=== PATIENT | female | born 1955 | race Two or more races ===

== ENCOUNTER 2023-09-09 12:35 | Inpatient (IN) | payer OTHER ==
[2023-09-09 13:34] VITALS: BMI 27.4
[2023-09-09] MEDS ORDERED: ONDANSETRON *ODT* 4 MG TABLET SL PRN (13:50)
[2023-09-09] MEDS ORDERED: MAGNESIUM HYDROX 2400MG/30ML ORAL SUSPENSION 30 ML CUP PO PRN (13:50)
[2023-09-09] MEDS ORDERED: ACETAMINOPHEN 325 MG TABLET (FP) PO PRN (13:50)
[2023-09-09] MEDS ORDERED: BENZOCAINE/MENTHOL (CHLORASEPTIC ) LOZENGE MM PRN (13:50)
[2023-09-09] MEDS ORDERED: hydrOXYzine PAMOATE 25 MG CAPSULE (FP) PO PRN (13:50)
[2023-09-09] MEDS ORDERED: BISMUTH SUBSALICYLATE 262 MG/15 ML BTL PO PRN (13:50)
[2023-09-09] MEDS ORDERED: BENZONATATE 200 MG CAPSULE PO PRN (13:50)
[2023-09-09] MEDS ORDERED: POLYETHYLENE GLYCOL (HEALTHYLAX) 3350 17 GM PACKET PO PRN (13:50)
[2023-09-09] MEDS ORDERED: IBUPROFEN 400 MG TABLET (FP) PO PRN (13:50)
[2023-09-09] MEDS ORDERED: MAG HYDROX/AL HYDROX/SIMETH 30 ML UNIT-DOSE CUP PO PRN (13:50)
[2023-09-09] MEDS ORDERED: IBUPROFEN 600 MG TABLET (FP) PO PRN (13:50)
[2023-09-09] MEDS ORDERED: METHOCARBAMOL 500 MG TABLET PO PRN (13:50)
[2023-09-09] MEDS ORDERED: DICYCLOMINE HCL 10 MG CAPSULE PO PRN (13:50)
[2023-09-09] MEDS ORDERED: NALOXONE HCL (KLOXXADO) 8 MG SPRAY NS PRN (13:50)
[2023-09-09] MEDS ORDERED: NALOXONE HCL 0.4 MG/ML VIAL IM PRN (13:50)
[2023-09-09] MEDS ORDERED: guaiFENesin 600 MG TABLET.ER (FP) PO PRN (13:50)
[2023-09-09] MEDS ORDERED: LOPERAMIDE HCL 2 MG CAPSULE PO PRN (13:50)
[2023-09-09] MEDS: MELATONIN 5 MG TABLETS PO SCH (22:33)
[2023-09-09] MEDS: THIAMINE HCL 100 MG TABLET (FP) PO SCH (22:33)
[2023-09-10] MEDS: methaDONE 40 MG, methaDONE 30 MG PO SCH (05:45)
[2023-09-10] MEDS ORDERED: methaDONE HCL 10 MG TABLET PO SCH (06:00)
[2023-09-10] MEDS: PRENATAL VITAMINS W/ FOLIC ACID TABLET (FP) PO SCH (10:51)
[2023-09-10 11:38] LABS: HEMATOCRIT 27.5 % (32.4-45.2); HEMOGLOBIN 7.7 GM/dL (10.7-15.3); MEAN CELL VOLUME 64.5 fl (80-96); RBC 4.26 M/mm3 (3.60-5.2); RDW 20.1 % (11.6-15.6); WHITE BLOOD COUNT 3.1 K/mm3 (4.0-10.0)
[2023-09-10 11:41] LABS: MCH 18.1 pg (25.7-33.7)
[2023-09-10 12:49] LABS: CHLORIDE 97 mmol/L (98-107); POTASSIUM 4.3 mmol/L (3.5-5.1); SODIUM 131 mmol/L (136-145)
[2023-09-10 12:51] LABS: CALCIUM 8.5 mg/dL (8.5-10.1)
[2023-09-10 12:52] LABS: ALBUMIN 2.8 g/dl (3.4-5.0); ANION GAP 3 mmol/L (4-13); CO2 31 mmol/L (21-32)
[2023-09-10 12:55] LABS: CREATININE 0.5 mg/dL (0.55-1.3); GLUCOSE,RANDOM 92 mg/dL (74-106); SGPT/ALT 23 U/L (13-61)
[2023-09-10 12:56] LABS: BILIRUBIN,TOTAL 0.7 mg/dL (0.2-1)
[2023-09-10 12:57] LABS: TOT PROT 7.5 g/dl (6.4-8.2)
[2023-09-10 12:58] LABS: ALK PHOS 102 U/L (45-117); SGOT/AST 43 U/L (15-37)
[2023-09-10] MEDS: diazePAM 5 MG TABLET PO SCH (17:13)
[2023-09-11] MEDS: diazePAM 5 MG TABLET PO SCH (05:50)
[2023-09-11] MEDS: LACTULOSE 20 GM/30 ML UDC (FOR ORAL USE ONLY) PO SCH (13:20)
[2023-09-11] MEDS: diazePAM 5 MG TABLET PO PRN (17:55)
[2023-09-12] MEDS: diazePAM 5 MG TABLET PO SCH (06:28)
[2023-09-12 14:47] LABS: HEMATOCRIT 25.6 % (32.4-45.2); HEMOGLOBIN 7.4 GM/dL (10.7-15.3); MCH 18.7 pg (25.7-33.7); MCHC 28.8 g/dl (32.0-36.0); MEAN CELL VOLUME 64.7 fl (80-96); MEAN PLT VOLUME 8.3 fl (7.5-11.1); PLATELET COUNT 61 10^3/uL (134-434); RBC 3.95 M/mm3 (3.60-5.2); RDW 20.4 % (11.6-15.6); WHITE BLOOD COUNT 2.9 K/mm3 (4.0-10.0)
[2023-09-12 14:59] LABS: IRON SERUM 136 ug/dL (50-175)
[2023-09-12 15:00] LABS: TOTAL IRON BINDING CAPACITY 394 ug/dL (250-450)
[2023-09-12 18:12] VITALS: RESP 16
[2023-09-12 19:45] VITALS: BP 94/51; PULSE 69; TEMP 97.9
[2023-09-13] MEDS: diazePAM 5 MG TABLET PO ONE (05:09)
== END 2023-09-13 07:15 | disposition short-term general hospital (02) | DRG 897 ==
LOC: YASAS 12:35 → Y6N 15:06
PROVIDERS: ADMIT Surgery; ATTEND Allergy & Immunology
PROC: HZ2ZZZZ Detoxification Services for Substance Abuse Treatment (ICD-10-PCS; principal; 2023-09-09)
DX: F10.230 Alcohol dependence with withdrawal, uncomplicated (principal); F11.20 Opioid dependence, uncomplicated; E72.20 Disorder of urea cycle metabolism, unspecified; F17.210 Nicotine dependence, cigarettes, uncomplicated; D64.9 Anemia, unspecified
CPT/HCPCS: 36415; 80053; 80307; 82140; 83540; 83550; 85027; 86022; 86780; 93005; 93010

== ENCOUNTER 2023-09-12 20:17 | Inpatient (IN) | payer OTHER ==
[2023-09-12 22:06] LABS: INR 1.43 (0.83-1.09); PROTHROMBIN TIME (PATIENT) 16.5 SEC (9.7-13.0)
[2023-09-12] MEDS ORDERED: THIAMINE HCL 200 MG/2 ML VIAL ONE (22:07)
[2023-09-12 22:08] LABS: ACTIVATED PTT 37.3 SECONDS (25.2-36.5)
[2023-09-12] MEDS: SODIUM CHLORIDE 0.9% 500 ML INFUS.BAG IV ONE (22:15)
[2023-09-12] MEDS: THIAMINE HCL 200 MG/2 ML VIAL IVPB ONE (22:15)
[2023-09-12 22:20] LABS: POTASSIUM 4.3 mmol/L (3.5-5.1)
[2023-09-12 22:21] LABS: ALBUMIN 2.5 g/dl (3.4-5.0); CALCIUM 8.7 mg/dL (8.5-10.1)
[2023-09-12 22:23] LABS: BLOOD UREA NITROGEN 6.5 mg/dL (7-18)
[2023-09-12 22:26] LABS: CREATININE 0.6 mg/dL (0.55-1.3)
[2023-09-12 22:27] LABS: BILIRUBIN,TOTAL 0.5 mg/dL (0.2-1); TOT PROT 7.2 g/dl (6.4-8.2)
[2023-09-12 22:51] LABS: BASO % 0.3 % (0-2.0); EOS % 1.5 % (0-4.5); HEMOGLOBIN 7.6 GM/dL (10.7-15.3); LYMPH % 16.6 % (8-40); MCHC 28.5 g/dl (32.0-36.0); MEAN PLT VOLUME 8.1 fl (7.5-11.1); NEUT % 69.6 % (42.8-82.8); RBC 4.16 M/mm3 (3.60-5.2); RDW 21.1 % (11.6-15.6)
[2023-09-12 23:01] LABS: HEMATOCRIT 26.5 % (32.4-45.2); MCH 18.4 pg (25.7-33.7); MEAN CELL VOLUME 64.3 fl (80-96); PLATELET COUNT 64 10^3/uL (134-434)
[2023-09-12 23:28] LABS: ANISOCYTOSIS 3+; MACROCYTOSIS 0; OVALOCYTE 1+; TARGET CELLS 1+
[2023-09-13 05:14] VITALS: BMI 27.6
[2023-09-13] MEDS: FOLIC ACID 1 MG TABLET (FP) PO SCH (09:27)
[2023-09-13] MEDS: THIAMINE 100 MG TABLET PO SCH (09:28)
[2023-09-13 09:51] LABS: BASO % 0.3 % (0-2.0); EOS % 1.6 % (0-4.5); HEMATOCRIT 28.1 % (32.4-45.2); HEMOGLOBIN 7.9 GM/dL (10.7-15.3); LYMPH % 20.4 % (8-40); MCHC 28.1 g/dl (32.0-36.0); MEAN CELL VOLUME 65.3 fl (80-96); MONO % 9.3 % (3.8-10.2); NEUT % 68.4 % (42.8-82.8); PLATELET COUNT 68 10^3/uL (134-434); RDW 21.3 % (11.6-15.6)
[2023-09-13 09:53] LABS: MCH 18.3 pg (25.7-33.7)
[2023-09-13] MEDS ORDERED: FOLIC ACID INJECTION - 1 MG, THIAMINE HCL 100 MG, MULTIVIT INJECTION ADULT 10 ML in SOD... IVPB ONE (10:00)
[2023-09-13 10:11] LABS: BLOOD UREA NITROGEN 6.6 mg/dL (7-18)
[2023-09-13 10:12] LABS: BILIRUBIN,TOTAL 0.6 mg/dL (0.2-1)
[2023-09-13 10:14] LABS: ALBUMIN 2.4 g/dl (3.4-5.0); CALCIUM 8.3 mg/dL (8.5-10.1); CREATININE 0.5 mg/dL (0.55-1.3); MAGNESIUM 1.4 mg/dL (1.8-2.4); PHOSPHOROUS 4.1 mg/dL (2.5-4.9)
[2023-09-15 08:47] LABS: BASO % 0.3 % (0-2.0); EOS % 1.3 % (0-4.5); HEMATOCRIT 27.8 % (32.4-45.2); HEMOGLOBIN 8.3 GM/dL (10.7-15.3); LYMPH % 16.7 % (8-40); MEAN CELL VOLUME 63.6 fl (80-96); MEAN PLT VOLUME 8.2 fl (7.5-11.1); MONO % 11.5 % (3.8-10.2); NEUT % 70.2 % (42.8-82.8); PLATELET COUNT 76 10^3/uL (134-434); RBC 4.37 M/mm3 (3.60-5.2); RDW 21.4 % (11.6-15.6); WHITE BLOOD COUNT 3.6 K/mm3 (4.0-10.0)
[2023-09-15 08:55] LABS: ACTIVATED PTT 38.5 SECONDS (25.2-36.5)
[2023-09-15 08:56] LABS: MCH 19.1 pg (25.7-33.7)
[2023-09-15 08:57] LABS: INR 1.44 (0.83-1.09); PROTHROMBIN TIME (PATIENT) 16.6 SEC (9.7-13.0)
[2023-09-15 09:05] LABS: POTASSIUM 3.8 mmol/L (3.5-5.1)
[2023-09-15 09:13] LABS: CALCIUM 8.4 mg/dL (8.5-10.1)
[2023-09-15 09:14] LABS: ALBUMIN 2.5 g/dl (3.4-5.0); BLOOD UREA NITROGEN 7.6 mg/dL (7-18)
[2023-09-15 09:15] LABS: MAGNESIUM 1.4 mg/dL (1.8-2.4)
[2023-09-15 09:17] LABS: CREATININE 0.4 mg/dL (0.55-1.3); PHOSPHOROUS 4.9 mg/dL (2.5-4.9)
[2023-09-15 09:19] LABS: BILIRUBIN,TOTAL 1.3 mg/dL (0.2-1); TOT PROT 7.3 g/dl (6.4-8.2)
[2023-09-15] MEDS: MAGNESIUM OXIDE 400 MG TABLET (FP) PO ONE (14:49)
[2023-09-15] MEDS: methaDONE HCL 10 MG TABLET (FOR DETOX USE ONLY) PO SCH (15:57)
[2023-09-15] MEDS: QUEtiapine FUMARATE 50 MG TABLET PO SCH (21:23)
[2023-09-16 08:49] VITALS: BP 103/45; PULSE 62; RESP 16; TEMP 98.1
[2023-09-16] MEDS: ESCITALOPRAM OXALATE 20 MG TABLET PO SCH (10:06)
== END 2023-09-16 11:32 | disposition other institution (70) | DRG 812 ==
LOC: JER 20:17 → JERBED 09-13 01:45 → J5S 09-13 04:51
PROVIDERS: ADMIT Student in an Organized Health Care Education/Training Program
DX: D50.9 Iron deficiency anemia, unspecified (principal); F11.20 Opioid dependence, uncomplicated; F10.20 Alcohol dependence, uncomplicated; I10 Essential (primary) hypertension; E78.5 Hyperlipidemia, unspecified; J45.909 Unspecified asthma, uncomplicated; R68.3 Clubbing of fingers; F39 Unspecified mood [affective] disorder
CPT/HCPCS: 36415; 70450-TC; 71045-TC-FY; 80053; 82272; 82728; 83021; 83540; 83550; 83735; 84100; 84484; 85025; 85610; 85660; 85730; 86850; 86870; 86880; 86900; 86901; 86902; 93005; 93010; 97116-GP; 97161-GP; 99285-25

== ENCOUNTER 2023-09-16 12:08 | Inpatient (IN) | payer OTHER ==
[2023-09-16 13:22] VITALS: RESP 16; BMI 25.6
[2023-09-16] MEDS ORDERED: MAGNESIUM HYDROX 2400MG/30ML ORAL SUSPENSION 30 ML CUP PO PRN (14:30)
[2023-09-16] MEDS ORDERED: BENZONATATE 200 MG CAPSULE PO PRN (14:30)
[2023-09-16] MEDS ORDERED: ACETAMINOPHEN 325 MG TABLET (FP) PO PRN (14:30)
[2023-09-16] MEDS ORDERED: MAG HYDROX/AL HYDROX/SIMETH 30 ML UNIT-DOSE CUP PO PRN (14:30)
[2023-09-16] MEDS ORDERED: NALOXONE HCL 0.4 MG/ML VIAL IM PRN (14:30)
[2023-09-16] MEDS ORDERED: hydrOXYzine PAMOATE 25 MG CAPSULE (FP) PO PRN (14:30)
[2023-09-16] MEDS ORDERED: POLYETHYLENE GLYCOL (HEALTHYLAX) 3350 17 GM PACKET PO PRN (14:30)
[2023-09-16] MEDS ORDERED: LOPERAMIDE HCL 2 MG CAPSULE PO PRN (14:30)
[2023-09-16] MEDS ORDERED: NALOXONE HCL (KLOXXADO) 8 MG SPRAY NS PRN (14:30)
[2023-09-16] MEDS ORDERED: guaiFENesin 600 MG TABLET.ER (FP) PO PRN (14:30)
[2023-09-16] MEDS ORDERED: BENZOCAINE/MENTHOL (CHLORASEPTIC ) LOZENGE MM PRN (14:30)
[2023-09-16] MEDS: NICOTINE 7 MG/24 HOURS TOPICAL PATCH TD SCH (15:45)
[2023-09-16] MEDS: PRENATAL VITAMINS W/ FOLIC ACID TABLET (FP) PO SCH (15:45)
[2023-09-16] MEDS ORDERED: PRENATAL VITAMINS W/ FOLIC ACID TABLET (FP) PO ONE (15:46)
[2023-09-16] MEDS ORDERED: NICOTINE 7 MG/24 HOURS TOPICAL PATCH TD ONE (15:49)
[2023-09-16] MEDS: IBUPROFEN 400 MG TABLET (FP) PO PRN (17:31)
[2023-09-16] MEDS: MELATONIN 5 MG TABLETS PO SCH (22:33)
[2023-09-16] MEDS: FERROUS SO4 325 MG TABLET (FP) PO SCH (22:33)
[2023-09-16] MEDS: THIAMINE 100 MG TABLET PO SCH (22:33)
[2023-09-16] MEDS: QUEtiapine FUMARATE 50 MG TABLET PO SCH (22:33)
[2023-09-17] MEDS: IBUPROFEN 600 MG TABLET (FP) PO PRN (06:57)
[2023-09-17 07:56] VITALS: BP 123/54; PULSE 57; TEMP 98
[2023-09-17] MEDS: methaDONE 40 MG, methaDONE 30 MG PO ONE (08:58)
[2023-09-17] MEDS: SPIRONOLACTONE 25 MG TABLET PO SCH (09:14)
[2023-09-17] MEDS: amLODIPine BESYLATE 5 MG TABLET (FP) PO SCH (09:15)
[2023-09-17] MEDS: LISINOPRIL 20 MG TABLET PO SCH (09:15)
[2023-09-17] MEDS ORDERED: methaDONE HCL 40 MG DISPERSABLE TABLET PO SCH (10:00)
[2023-09-18] MEDS ORDERED: methaDONE 40 MG, methaDONE 30 MG PO SCH (06:00)
== END 2023-09-17 09:00 | disposition short-term general hospital (02) | DRG 895 ==
LOC: YASAS 12:08 → Y3NR 14:56
PROVIDERS: ADMIT Allergy & Immunology; ATTEND Psychiatry & Neurology Pain Medicine
PROC: HZ42ZZZ Group Counseling for Substance Abuse Treatment, Cognitive-Behavioral (ICD-10-PCS; principal; 2023-09-16)
DX: F10.20 Alcohol dependence, uncomplicated (principal); F11.20 Opioid dependence, uncomplicated; F17.210 Nicotine dependence, cigarettes, uncomplicated; F32.9 Major depressive disorder, single episode, unspecified; D50.9 Iron deficiency anemia, unspecified; I10 Essential (primary) hypertension; R55 Syncope and collapse; S79.919A Unspecified injury of unspecified hip, initial encounter; W01.0XXA Fall on same level from slipping, tripping and stumbling without subsequent striking against object, initial encounter; Y92.230 Patient room in hospital as the place of occurrence of the external cause
CPT/HCPCS: 36415; 82140; 86803; 87811; 93005; 93010

== ENCOUNTER 2023-09-17 09:10 | Inpatient (IN) | payer OTHER ==
[2023-09-17 10:49] LABS: BASO % 0.4 % (0-2.0); EOS % 1.6 % (0-4.5); HEMATOCRIT 29.7 % (32.4-45.2); HEMOGLOBIN 8.5 GM/dL (10.7-15.3); MCHC 28.6 g/dl (32.0-36.0); MEAN CELL VOLUME 65.7 fl (80-96); MEAN PLT VOLUME 7.7 fl (7.5-11.1); MONO % 9.2 % (3.8-10.2); NEUT % 73.8 % (42.8-82.8); PLATELET COUNT 85 10^3/uL (134-434); RBC 4.52 M/mm3 (3.60-5.2); RDW 22.4 % (11.6-15.6)
[2023-09-17 10:54] LABS: MCH 18.8 pg (25.7-33.7)
[2023-09-17 11:05] LABS: POTASSIUM 3.7 mmol/L (3.5-5.1)
[2023-09-17 11:08] LABS: CALCIUM 9.2 mg/dL (8.5-10.1)
[2023-09-17 11:09] LABS: ALBUMIN 2.7 g/dl (3.4-5.0); BLOOD UREA NITROGEN 20.1 mg/dL (7-18)
[2023-09-17 11:12] LABS: CREATININE 0.8 mg/dL (0.55-1.3)
[2023-09-17 11:13] LABS: TOT PROT 8.1 g/dl (6.4-8.2)
[2023-09-17 16:50] LABS: RETICULOCYTES 1.23 % (0.5-1.5)
[2023-09-17] MEDS ORDERED: KETOROLAC TROMETHAMINE 30 MG/1 ML VIAL ONE (17:56)
[2023-09-17] MEDS: KETOROLAC TROMETHAMINE 30 MG/1 ML VIAL IM ONE (18:02)
[2023-09-17] MEDS: IRON SUCROSE INJECTION 200 MG in SODIUM CHLORIDE 100 ML IVPB ONE (21:58)
[2023-09-18 03:34] VITALS: BMI 26.8
[2023-09-18 07:15] LABS: BASO % 0.3 % (0-2.0); EOS % 2.3 % (0-4.5); HEMATOCRIT 27.1 % (32.4-45.2); HEMOGLOBIN 7.8 GM/dL (10.7-15.3); LYMPH % 14.1 % (8-40); MCHC 28.9 g/dl (32.0-36.0); MEAN CELL VOLUME 65.8 fl (80-96); MEAN PLT VOLUME 8.2 fl (7.5-11.1); MONO % 11.4 % (3.8-10.2); NEUT % 71.9 % (42.8-82.8); PLATELET COUNT 82 10^3/uL (134-434); RBC 4.12 M/mm3 (3.60-5.2); WHITE BLOOD COUNT 3.1 K/mm3 (4.0-10.0)
[2023-09-18 07:24] LABS: POTASSIUM 3.8 mmol/L (3.5-5.1)
[2023-09-18 07:30] LABS: BLOOD UREA NITROGEN 22.9 mg/dL (7-18); CALCIUM 8.3 mg/dL (8.5-10.1); MAGNESIUM 1.9 mg/dL (1.8-2.4)
[2023-09-18 07:31] LABS: ALBUMIN 2.4 g/dl (3.4-5.0)
[2023-09-18 07:34] LABS: CREATININE 0.6 mg/dL (0.55-1.3); PHOSPHOROUS 4.8 mg/dL (2.5-4.9)
[2023-09-18 07:35] LABS: BILIRUBIN,TOTAL 0.6 mg/dL (0.2-1); TOT PROT 7.2 g/dl (6.4-8.2)
[2023-09-18] MEDS: THIAMINE HCL 200 MG/2 ML VIAL IVPB SCH (09:50)
[2023-09-18] MEDS ORDERED: methaDONE HCL 10 MG TABLET (FOR DETOX USE ONLY) PO SCH (10:00)
[2023-09-18] MEDS: SODIUM CHLORIDE 1,000 ML IV SCH (10:41)
[2023-09-18] MEDS: methaDONE 40 MG, methaDONE 30 MG PO SCH (10:43)
[2023-09-19 06:54] LABS: BASO % 0.2 % (0-2.0); HEMATOCRIT 26.2 % (32.4-45.2); HEMOGLOBIN 7.7 GM/dL (10.7-15.3); MCHC 29.4 g/dl (32.0-36.0); MEAN CELL VOLUME 65.8 fl (80-96); MONO % 11.7 % (3.8-10.2); NEUT % 65.1 % (42.8-82.8); PLATELET COUNT 84 10^3/uL (134-434); RBC 3.99 M/mm3 (3.60-5.2); RDW 23.2 % (11.6-15.6); WHITE BLOOD COUNT 2.9 K/mm3 (4.0-10.0)
[2023-09-19 07:01] LABS: POTASSIUM 4.2 mmol/L (3.5-5.1)
[2023-09-19 07:05] LABS: BLOOD UREA NITROGEN 11.6 mg/dL (7-18); CALCIUM 8.3 mg/dL (8.5-10.1)
[2023-09-19 07:06] LABS: ALBUMIN 2.5 g/dl (3.4-5.0)
[2023-09-19 07:08] LABS: CREATININE 0.5 mg/dL (0.55-1.3)
[2023-09-19 07:11] LABS: TOT PROT 7.3 g/dl (6.4-8.2)
[2023-09-19 07:15] LABS: BILIRUBIN,TOTAL 0.8 mg/dL (0.2-1)
[2023-09-19 07:15] LABS: MCH 19.3 pg (25.7-33.7)
[2023-09-19] MEDS: ESCITALOPRAM OXALATE 20 MG TABLET PO SCH (09:21)
[2023-09-19] MEDS: THIAMINE 100 MG TABLET PO SCH (09:22)
[2023-09-19 13:49] LABS: COCAINE, UR NEGATIVE (NEGATIVE); URINE AMPHETAMINES NEGATIVE (NEGATIVE)
[2023-09-19 13:50] LABS: OPIATES, URI NEGATIVE (NEGATIVE); URINE BARBITURATES NEGATIVE (NEGATIVE)
[2023-09-19 13:51] LABS: PHENCYCLIDINE,URINE NEGATIVE (NEGATIVE)
[2023-09-19 13:53] LABS: METHADONE, UR POSITIVE (NEGATIVE); URINE BENZODIAZEPINES POSITIVE (NEGATIVE)
[2023-09-19] MEDS: THIAMINE HCL 200 MG/2 ML VIAL IVPB SCH (17:28)
[2023-09-20 08:26] LABS: BASO % 0.2 % (0-2.0); EOS % 1.9 % (0-4.5); HEMATOCRIT 26.9 % (32.4-45.2); HEMOGLOBIN 8.1 GM/dL (10.7-15.3); LYMPH % 18.9 % (8-40); MCHC 29.9 g/dl (32.0-36.0); MEAN CELL VOLUME 65.9 fl (80-96); MEAN PLT VOLUME 8.2 fl (7.5-11.1); MONO % 10.6 % (3.8-10.2); NEUT % 68.4 % (42.8-82.8); PLATELET COUNT 91 10^3/uL (134-434); RBC 4.08 M/mm3 (3.60-5.2); RDW 23.2 % (11.6-15.6); WHITE BLOOD COUNT 4.2 K/mm3 (4.0-10.0)
[2023-09-20 08:42] LABS: POTASSIUM 4.3 mmol/L (3.5-5.1)
[2023-09-20 08:47] LABS: MCH 19.7 pg (25.7-33.7)
[2023-09-20 09:01] LABS: CALCIUM 9.2 mg/dL (8.5-10.1)
[2023-09-20 09:02] LABS: BLOOD UREA NITROGEN 9.1 mg/dL (7-18)
[2023-09-20 09:05] LABS: ALBUMIN 2.6 g/dl (3.4-5.0); CREATININE 0.5 mg/dL (0.55-1.3)
[2023-09-20] MEDS: LOSARTAN POTASSIUM 50 MG TABLET PO SCH (09:05)
[2023-09-20 09:07] LABS: BILIRUBIN,TOTAL 0.8 mg/dL (0.2-1); TOT PROT 7.8 g/dl (6.4-8.2)
[2023-09-21 07:18] LABS: POTASSIUM 4.2 mmol/L (3.5-5.1)
[2023-09-21 07:19] LABS: HEMATOCRIT 29.3 % (32.4-45.2); HEMOGLOBIN 8.5 GM/dL (10.7-15.3); MCHC 28.9 g/dl (32.0-36.0); MEAN CELL VOLUME 67.5 fl (80-96); MEAN PLT VOLUME 8.4 fl (7.5-11.1); PLATELET COUNT 103 10^3/uL (134-434); RBC 4.34 M/mm3 (3.60-5.2); RDW 23.6 % (11.6-15.6); WHITE BLOOD COUNT 4.2 K/mm3 (4.0-10.0)
[2023-09-21 07:22] LABS: MCH 19.5 pg (25.7-33.7)
[2023-09-21 07:27] LABS: BLOOD UREA NITROGEN 10.1 mg/dL (7-18); CALCIUM 8.9 mg/dL (8.5-10.1); MAGNESIUM 1.7 mg/dL (1.8-2.4)
[2023-09-21 07:31] LABS: CREATININE 0.5 mg/dL (0.55-1.3)
[2023-09-21] MEDS: MAGNESIUM OXIDE 400 MG TABLET (FP) PO ONE (13:56)
[2023-09-22 07:45] LABS: HEMATOCRIT 26.9 % (32.4-45.2); MCHC 29.8 g/dl (32.0-36.0); MEAN CELL VOLUME 66.9 fl (80-96); MEAN PLT VOLUME 8.3 fl (7.5-11.1); PLATELET COUNT 93 10^3/uL (134-434); RBC 4.02 M/mm3 (3.60-5.2); RDW 24.7 % (11.6-15.6); WHITE BLOOD COUNT 3.8 K/mm3 (4.0-10.0)
[2023-09-22 07:47] LABS: MCH 19.9 pg (25.7-33.7)
[2023-09-22 07:50] LABS: POTASSIUM 4.1 mmol/L (3.5-5.1)
[2023-09-22 07:55] LABS: BLOOD UREA NITROGEN 8.5 mg/dL (7-18); CALCIUM 8.9 mg/dL (8.5-10.1); MAGNESIUM 1.9 mg/dL (1.8-2.4)
[2023-09-22 07:59] LABS: CREATININE 0.5 mg/dL (0.55-1.3); PHOSPHOROUS 3.9 mg/dL (2.5-4.9)
[2023-09-22] MEDS: FOLIC ACID 1 MG TABLET (FP) PO SCH (09:18)
[2023-09-22] MEDS: THIAMINE 100 MG TABLET PO SCH (09:18)
[2023-09-22] MEDS: FERROUS SO4 325 MG TABLET (FP) PO SCH (12:19)
[2023-09-22 16:03] VITALS: RESP 18
[2023-09-22] MEDS: DOCUSATE SODIUM 100 MG CAPSULE (FP) PO SCH (21:00)
[2023-09-23 06:06] VITALS: TEMP 98.1
[2023-09-23 07:18] LABS: BASO % 0.4 % (0-2.0); EOS % 1.8 % (0-4.5); HEMATOCRIT 27.7 % (32.4-45.2); HEMOGLOBIN 8.2 GM/dL (10.7-15.3); LYMPH % 20.5 % (8-40); MCH 20.1 pg (25.7-33.7); MCHC 29.7 g/dl (32.0-36.0); MEAN CELL VOLUME 67.7 fl (80-96); MEAN PLT VOLUME 8.2 fl (7.5-11.1); MONO % 8.4 % (3.8-10.2); NEUT % 68.9 % (42.8-82.8); PLATELET COUNT 95 10^3/uL (134-434); RBC 4.09 M/mm3 (3.60-5.2); RDW 25.2 % (11.6-15.6); WHITE BLOOD COUNT 3.5 K/mm3 (4.0-10.0)
[2023-09-23 07:37] LABS: POTASSIUM 3.9 mmol/L (3.5-5.1)
[2023-09-23 07:53] LABS: ALBUMIN 2.7 g/dl (3.4-5.0); BLOOD UREA NITROGEN 8.4 mg/dL (7-18); CALCIUM 9.4 mg/dL (8.5-10.1)
[2023-09-23 07:56] LABS: CREATININE 0.5 mg/dL (0.55-1.3)
[2023-09-23 07:58] LABS: BILIRUBIN,TOTAL 1.1 mg/dL (0.2-1); TOT PROT 7.6 g/dl (6.4-8.2)
[2023-09-23 08:57] LABS: ANISOCYTOSIS 3+; MACROCYTOSIS 0
[2023-09-23] MEDS: THIAMINE HCL 200 MG/2 ML VIAL IVPB SCH (10:02)
[2023-09-23] MEDS: LIDOCAINE 5% TOPICAL PATCH TP SCH (11:30)
[2023-09-23 12:29] VITALS: BP 118/58; PULSE 65
[2023-09-23] MEDS ORDERED: LIDOCAINE PATCH REMOVAL MC SCH (22:00)
== END 2023-09-23 13:45 | disposition other institution (70) | DRG 312 ==
LOC: JERFT 09:10 → JER 09:10 → J4W 16:41 → UNDOADMOB 19:32 → J4W 19:32 → INTOOBSV 19:32 → OBSVTOIN 09-22 10:36
PROVIDERS: ADMIT Internal Medicine; ATTEND Internal Medicine
DX: I95.1 Orthostatic hypotension (principal); G93.41 Metabolic encephalopathy; F10.99 Alcohol use, unspecified with unspecified alcohol-induced disorder; I10 Essential (primary) hypertension; J45.909 Unspecified asthma, uncomplicated; F19.10 Other psychoactive substance abuse, uncomplicated; D69.6 Thrombocytopenia, unspecified; D50.9 Iron deficiency anemia, unspecified; E78.5 Hyperlipidemia, unspecified
CPT/HCPCS: 36415; 70450-TC; 71046-TC-FY; 71275-TC; 80048; 80053; 80307; 82728; 83540; 83550; 83735; 84100; 84484; 85025; 85027; 85045; 85379; 86870; 86880; 86902; 86922; 93306-TC; 93970-TC; 97116-GP; 97162-GP; 99285-25; G0378; J1756; Q9967